=== PATIENT | female | born 1995 | race Caucasian/White ===

== ENCOUNTER 2016-11-28 09:44 | Outpatient (CLI) | payer MEDICAID ==
[~2016-11-28] VITALS: Ht 154.9 cm; Wt 84.6 kg
[~2016-11-28 09:44] MED LIST: ONDA4SOL2 PO; PREN1TAB62 PO
[2016-11-28 10:07] VITALS: BP 111/65; PULSE 81; RESP 18; Ht 154.9 cm; Wt 84.6 kg
[2016-11-28 10:49] LABS: ADD UMIC YES; URINE BILIRUBIN (Dip) NEGATIVE (NEGATIVE); URINE BLOOD (Dip) NEGATIVE (NEGATIVE); URINE COLOR LT. YELLOW (YELLOW); URINE GLUCOSE (Dip) NEGATIVE (NEGATIVE); URINE KETONES (Dip) NEGATIVE (NEGATIVE); URINE LEUKOCYTE ESTERASE (Dip) 1+ (NEGATIVE); URINE NITRITE (Dip) NEGATIVE (NEGATIVE); URINE TOTAL PROTEIN (Dip) NEGATIVE (NEGATIVE); URINE UROBILINOGEN (Dip) 0.2 E.U./dL (0.1-1.0)
[2016-11-28 11:02] LABS: BACTERIA,URINE OCCASIONAL; SQUAMOUS EPITHELIAL CELL,UR MODERATE; URINE RBCS NONE SEEN /HPF (0)
--- NOTE | 2016-11-28 11:04 | RADRPT ---
PROCEDURE: US OB limited. CLINICAL INDICATION: labor. TECHNIQUE: Multiple transabdominal sonographic images of the pelvis were obtained. COMPARISON: 08/20/2016. FINDINGS: There is a single live intrauterine in cephalic presentation with heart motion of 14 4 beats per minute. The placenta is located within the fundus and is without evidence of previa or abruption. The cervix is closed and measures approximately 3.0 cm in length. IMPRESSION: Closed cervix measuring 3.0 cm in length. RPTAT: HLST .Vivien Baptiste MD, MD Date Time Electronically viewed and signed by .Vivien Baptiste MD, on 11/28/2016 11:04 .T/
[2016-11-28] MEDS ORDERED: LIDOCAINE 1% (MPF) 30 ML INJ ONE (11:30)
--- NOTE | 2016-11-28 11:54 | TRIAGE ---
OB Triage Datetime Report Generated by CPN: 11/28/2016 11:54 Datetime: 11/28/2016 11:49 Vaginal Exam Dilatation (cms): 0.0 Exam By: FOROOHAR Datetime: 11/28/2016 11:00 Stage of : OB Triage Maternal Assessment Level of Consciousness: Fully Conscious Labor Evaluation Frequency: 5UC/HR Monitor Mode: External Duration (sec)2399: 30-130 Quality: Mild Resting Tone [place]: Relaxed Heart Rate FHR Baseline Rate: 135 Monitor Mode: External US Variability: Moderate 6-25 bpm Accelerations: 15X15 Decelerations: None Pain Assessment Pain Scale: 5 Pain Presence: Constant Pain Type: Sharp Pain Location: Perineum Pain Goal: 3 Pain Relief Measures: Comfort Measures Membrane Status: Intact Vaginal Bleeding: None Datetime: 11/28/2016 10:30 Stage of : OB Triage Maternal Assessment Level of Consciousness: Fully Conscious Labor Evaluation Frequency: OCCASIONAL Monitor Mode: External Duration (sec)2399: 30-40 Quality: Mild Resting Tone [place]: Relaxed Heart Rate FHR Baseline Rate: 135 Monitor Mode: External US Variability: Moderate 6-25 bpm Accelerations: 15X15 Decelerations: None Pain Assessment Pain Scale: 5 Pain Presence: Constant Pain Type: Sharp Pain Location: Perineum Pain Goal: 3 Pain Relief Measures: Comfort Measures Membrane Status: Intact Vaginal Bleeding: None Datetime: 11/28/2016 10:05 EGA: 33.1 Datetime: 11/28/2016 10:02 Assessment Type: Triage Maternal Assessment Level of Consciousness: Fully Conscious DTR's/Clonus: DTRs 2+; No Clonus Headache: Denies Blurred Vision: No Respiratory Effort: Unlabored; Regular Rhythm; Equal Expansion Breath Sounds, Left: Clear and Equal Breath Sounds, Right: Clear and Equal Nausea/Vomiting: Denies RUQ Epigastric Pain: Denies Lower Extremities Edema: None Degree: None Upper Extremities Edema: None Degree: None Facial Edema: None Fall Risk Assessment History of Falling: (0) No Secondary Diagnosis: (0) No Ambulatory Aid: (0) Bedrest/Nurse Assist IV Therapy: (0) No Gait: (0) Normal/Bedrest/Immobile Mental Status: (0) Oriented to Own Ability Fall Score: 0 Fall Risk Score Definition: No Risk: No action required Datetime: 11/28/2016 10:00 Time of Arrival: 11/28/2016 09:43 Arrived By: Wheelchair Arrived From: Home Chief Complaint: PT HERE C/O SHARP PAINS TO VAGINA Movement: Decreased Contractions: Denies/Absent Rupture of Membranes: Denies Vaginal Bleeding: None Vaginal Discharge: Present Recent Sexual Intercouse: Denies Abdominal Trauma: Not Applicable Patient Complaints: Pain on Urination Time Provider Notified: 11/28/2016 10:15 Provider Notified: ANA CRISTINA Initial Plan: EFM, UA, U/S CVL
[2016-11-28] MEDS ORDERED: NITR-58 PO (11:56)
[2016-11-28] MEDS ORDERED: LIDOCAINE 1% (MPF) 30 ML INJ INJ PRN (12:00)
[2016-11-28] MEDS ORDERED: CEFTRIAXONE 2 GM INJ IM ONE (12:00)
--- NOTE | 2016-11-28 15:40 | CONS ---
DATE OF ADMISSION: 11/28/2016 DATE OF CONSULTATION: 11/28/2016 HISTORY OF PRESENT ILLNESS: This is a triage consult for this 20-year-old 3, para 2 with ED C of 01/15/2017 which makes her about 33 weeks and 2 days. She came to the triage area complaining of a sharp, shooting pain in her lower abdomen and vaginal area as well as burning sensation on urin ation for today and last night. PHYSICAL EXAMINATION: ENT: Normal. NECK: Normal. No neck vein distention, no thyromegaly. LUNGS: Clear to auscultation and percussion. HEART: Normal sinus rhythm. BREASTS: Free of masses. ABDOMEN: Measuring about 38 cm. Baby appears to be in vertex presentation. heart tone was n ormal. EXTREMITIES: Normal. PELVIC: The cervix was normal about 2.5 to 3.5 cm in length, closed and she did not have any bleedi ng at that time. The effacement of the cervix was around 20% to 30%. The ultrasound study which wa s done revealed a single live intrauterine in cephalic presentation. heart of motio n of 144 beats per minute. The placenta was located within the fundus area without any evidence of placenta previa or abruptio placenta. The cervical length they reported was 3 cm. LABORATORY DATA: Her lab work which was done here: Urinalysis did show a 1+ positive for leukocyte esterase and the rest of the exam was normal. She was given 2 grams of Rocephin and then a prescri ption was written for Macrobid 100 mg to be taken b.i.d. for 10 days and will have a followup examin ation in the clinic in 3 days Dictated By: HEIDI WORRELL MD HF/NTS Conf#: [id number] DID#: [id number]
== END 2016-11-28 12:00 | disposition home or self-care (01) ==
LOC: OBT 09:44 → L-D 09:45 → OBT 12:00
PROVIDERS: ATTEND Obstetrics & Gynecology
DX: O26.893 Other specified pregnancy related conditions, third trimester (principal); R10.30 Lower abdominal pain, unspecified; R30.0 Dysuria; O60.03 Preterm labor without delivery, third trimester; Z3A.33 33 weeks gestation of pregnancy
CPT/HCPCS: 76817; 81001; 96372; J0696; Z7500; Z7610; 81003; G0463

== ENCOUNTER 2017-01-08 05:38 | Inpatient (IN) | payer MEDICAID ==
[2017-01-08] VITALS (7 sets, daily range): BP systolic 107–123; BP diastolic 57–84; PULSE 67–87; RESP 17–19; Ht 154.9 cm; Wt 86.0 kg
[~2017-01-08] VITALS: Ht 154.9 cm; Wt 86.0 kg
[2017-01-08] MEDS: LACTATED RINGER'S 1,000 ML IV SCH ×3 (00:02→07:19)
[~2017-01-08 05:38] MED LIST changes: +NITR-58 PO; -ONDA4SOL2 PO
[2017-01-08] MEDS ORDERED: OXYTOCIN 30 UNITS/LR 500 ML IV SCH (06:00)
[2017-01-08] MEDS ORDERED: CARBOPROST 250 MCG INJ IM PRN ×2 (06:00→12:30)
[2017-01-08] MEDS ORDERED: MISOPROSTOL 200 MCG TAB PR PRN ×2 (06:00→12:30)
[2017-01-08] MEDS ORDERED: CEFAZOLIN 2 GM/50 ML (PMX) 50 ML IV SCH (06:00)
[2017-01-08] MEDS ORDERED: METHYLERGONOVINE 0.2 MG INJ IM PRN ×2 (06:00→12:30)
[2017-01-08] MEDS ORDERED: OXYTOCIN 30 UNITS/LR 500 ML IV PRN ×2 (06:00→12:30)
[2017-01-08 06:42] LABS: INR 0.91; PARTIAL THROMBOPLASTIN TIME 28.2 Sec (25.0-35.0); PROTIME 12.2 Sec (12.2-14.2)
[2017-01-08 06:51] LABS: BASOPHILS % 0.4 % (0.0-2.0); EOSINOPHILS # 0.1 10^3/ul (0.0-0.5); EOSINOPHILS % 0.7 % (0.0-7.0); HEMOGLOBIN 13.3 g/dl (12.0-16.0); LYMPHOCYTES # 2.6 10^3/ul (0.8-2.9); MEAN CORPUSCULAR HEMOGLOBIN 28.3 pg (29.0-33.0); MEAN CORPUSCULAR HGB CONC 34.1 g/dl (32.0-37.0); MEAN CORPUSCULAR VOLUME 82.9 fl (82.0-101.0); MEAN PLATELET VOLUME 9.7 fl (7.4-10.4); MONOCYTE # 0.3 10^3/ul (0.3-0.9); MONOCYTES % 3.3 % (0.0-11.0); NEUTROPHIL # 7.5 10^3/ul (1.6-7.5); NEUTROPHILS % 70.6 % (39.0-77.0); PLATELET COUNT 215 10^3/UL (140-440); RED BLOOD COUNT 4.71 10^6/ul (4.20-5.40); RED CELL DISTRIBUTION WIDTH 15.1 % (11.5-14.5); UNCORRECTED WBC 10.6 10^3/ul (4.8-10.8); WHITE BLOOD COUNT 10.6 10^3/ul (4.8-10.8)
[2017-01-08 06:55] LABS: CONDITION 1; LH ANALYZER COMMENTS 1
[2017-01-08] MEDS ORDERED: ONDANSETRON 4 MG INJ IV STA (07:05)
[2017-01-08] MEDS ORDERED: morphine SULFATE/PF (10 MG/10 ML) INJ ONE (07:07)
[2017-01-08] MEDS ORDERED: OXYTOCIN 10 UNIT INJ ONE (07:07)
[2017-01-08] MEDS ORDERED: CITRIC ACID/NA CITRATE 30 ML CUP PO ONE (07:30)
[2017-01-08] MEDS ORDERED: PHENYLephrine (100 MCG/ML) 5ML SYG ONE (08:46)
[2017-01-08] MEDS ORDERED: KETOROLAC 30 MG INJ ONE (09:01)
[2017-01-08] MEDS ORDERED: METOCLOPRAMIDE 10 MG INJ ONE (09:01)
[2017-01-08] MEDS ORDERED: DEXAMETHASONE 4 MG/ML 1 ML INJ ONE (09:01)
[2017-01-08] MEDS ORDERED: EPHEDrine SULFATE 50 MG/5 ML SYG IV PRN (09:30)
[2017-01-08] MEDS ORDERED: HYDROmorphONE (0.2 MG/ML) 10ML SYG IV PRN ×3 (09:30)
[2017-01-08] MEDS ORDERED: HYDROmorphONE 1 MG/ML SYG IV PRN ×2 (09:30)
[2017-01-08] MEDS ORDERED: NALOXONE (0.4 MG/ML) INJ IV PRN (09:30)
[2017-01-08] MEDS ORDERED: morphine 2 MG INJ IV PRN ×2 (09:30)
[2017-01-08] MEDS ORDERED: ZOLPIDEM 5 MG TAB PO PRN (09:30)
[2017-01-08] MEDS ORDERED: FENTAnyl 50 MCG/ML VIAL IV PRN ×2 (09:30)
[2017-01-08] MEDS ORDERED: METOCLOPRAMIDE 10 MG INJ IV PRN (09:30)
[2017-01-08] MEDS ORDERED: ONDANSETRON 4 MG INJ IV PRN ×2 (09:30)
[2017-01-08] MEDS ORDERED: DIPHENHYDRAMINE 50 MG INJ IV PRN ×2 (09:30)
[2017-01-08] MEDS ORDERED: MEPERIDINE 25 MG INJ IV PRN (09:30)
[2017-01-08] MEDS ORDERED: morphine (1 MG/ML) 10ML SYRINGE IV PRN ×3 (09:30)
[2017-01-08] MEDS ORDERED: DIPHENHYDRAMINE 50 MG INJ ONE (10:03)
--- NOTE | 2017-01-08 11:23 | HP ---
DATE OF ADMISSION: 01/08/2017 HISTORY OF PRESENT ILLNESS: This is a 20-year-old female, 3, para 2, EDC of 2006. History of previous section admitted at 39 weeks' gestation for repeat transverse low cervical section. This patient has been under the care of the [facility] an kyara her course was not complicated with gestational diabetes, questionable hypertension towa rds the latter part of the , but unknown medications. GYNECOLOGIC HISTORY: Menarche at age 9, regular period every 28 days, lasting 4 or 5 days. Histor y of 3 pregnancies including the present, 2 previous C-sections. PAST MEDICAL HISTORY: No other history of surgery or hospitalization recorded in the patient's pren atal. ALLERGIES: DENIES ALLERGY TO ANY KNOWN MEDICATION. SOCIAL HISTORY: Denies smoking or drinking. FAMILY HISTORY: Unremarkable. REVIEW OF SYSTEMS: Within normal. PHYSICAL EXAMINATION: VITAL SIGNS: 5 feet 1 inch, 190 pounds with a temperature of 98.7, pulse of 87, respiration 18, blo od pressure 118/66. HEAD, EARS, NOSE AND THROAT: Negative. NECK: Supple. No thyromegaly. LUNGS: Clear to P and A. HEART: Normal sinus rhythm, no murmur. BREASTS: Status compatible with state of the . No abnormal palpable mass. No nipple retr action or discharge. No axillary adenopathy, no supraclavicular adenopathy. ABDOMEN: Measures 37 cm from symphysis pubis with the heart rate at 135 beats per minute, cat egory 1. PELVIC: Deferred. EXTREMITIES: No edema, no varicosities. IMPRESSION: 1. Intrauterine at 39 weeks' gestation. 2. History of 2 previous C-sections, undergoing a repeat for the third time. Patient is aware of the complication of the surgery, including bowel or bladder injury, infection, hemorrhage, and hematoma, and she is willing to go ahead with this procedure. Dictated By: CIARA DE LA PAZ MD HF/NTS Conf#: [id number] DID#: [id number]
[2017-01-08] MEDS: KETOROLAC 30 MG INJ IV PRN ×2 (11:48→20:24)
[2017-01-08] MEDS ORDERED: ACETAMINOPHEN/CODEINE #3 TAB PO PRN ×2 (12:30)
[2017-01-08] MEDS ORDERED: LANOLIN 7 GM TUBE TOP PRN (12:30)
[2017-01-08] MEDS ORDERED: CEFAZOLIN 1 GM/50 ML (PMX) 50 ML IVPB SCH (12:30)
[2017-01-08] MEDS: OXYTOCIN 30 UNITS/LR 500 ML IV SCH ×3 (15:39→20:11)
--- NOTE | 2017-01-08 17:55 | OPR ---
DATE OF OPERATION: PREOPERATIVE DIAGNOSES: 1. Intrauterine at 39 weeks' gestation. 2. History of 2 previous sections. POSTOPERATIVE DIAGNOSES: 1. Intrauterine at 39 weeks' gestation. 2. History of 2 previous sections. OPERATION PERFORMED: Repeat transverse low cervical section. SURGEON: Ciara Jang MD MEDICAL DIR: Leandro Odell MD ANESTHESIA: Spinal. ANESTHESIOLOGIST: FINDINGS: Live baby boy with the 9 and 9. Baby weighed 8 pounds. DETAILS OF THE PROCEDURE: Under satisfactory spinal anesthesia, the patient was prepped and draped and placed in supine position, tilted to the left. Pfannenstiel incision was made, incision carried through the subcutaneous tissue. Bleeders brought under control with electrocautery. Fascia incised to the length of incision. Rectus muscle divided in midline. Peritoneum exposed. Upon entry into the abdomen, there was some adhesion between the omentum, anterior uterine wall and the lower segment, which was taken down by the sharp and blunt dissection. Lower segment of the uterus, which was extremely thinned out, exposed and a transverse incision was made in the upper part of the lower segment of the uterus above the thin part. Incision continued to the membrane, which was punctured and clear amniotic fluid noted. Live baby boy was delivered from unengaged vertex. Nasal oropharyngeal suction was performed and baby handed to the team for immediate attention. The patient received 20 units of Pitocin. Placenta delivered manually intact. Uterine cavity cleaned with wet sponge and drainage established. Uterus closed in 2 layers using Monocryl #1 in continuous fashion. Peritoneal cavity irrigated with warm saline. Sponge, needle and instrument reported to be correct. Abdominal peritoneum closed with 2-0 chromic catgut continuously. Rectus muscle approximated with few interrupted 2-0 chromic catgut. Fascia closed with #1 PDS in a continuous fashion. Subcutaneous tissue approximated with 2-0 chromic catgut. Skin closed with elliot. Estimated blood loss 600-700 mL. Urine bag contained 200 mL of clear urine. Patient tolerated the procedure well , transferred to recovery room in a good condition. Dictated By: CIARA LALA/SESAR Conf#: [id number] DID#: [id number] [facility]ALTH[facility]aron
[2017-01-08] MEDS: SENNA/DOCUSATE NA (8.6MG/50MG) TAB PO SCH (21:00)
[2017-01-09] MEDS: LACTATED RINGER'S 1,000 ML IV SCH (00:02)
[2017-01-09] MEDS: KETOROLAC 30 MG INJ IV PRN (04:34)
[2017-01-09 04:45] VITALS: BP_SYST 126; BP_SYST 96; BP_DIAS 56; BP_DIAS 78; PULSE 67; PULSE 92; RESP 18
[2017-01-09] MEDS: IBUPROFEN 600 MG TAB PO SCH ×5 (07:30→23:37)
[2017-01-09] MEDS: SENNA/DOCUSATE NA (8.6MG/50MG) TAB PO SCH ×2 (08:02→21:04)
[2017-01-09 08:30] VITALS: BP 101/49; PULSE 81; RESP 16
[2017-01-09] MEDS: OXYCODONE/ACETAMINOPHEN (5/325) TAB PO PRN ×3 (09:17→19:35)
[2017-01-09 09:56] LABS: BASOPHILS % 0.3 % (0.0-2.0); EOSINOPHILS % 0.5 % (0.0-7.0); HEMATOCRIT 32.5 % (37.0-47.0); LYMPHOCYTES # 2.4 10^3/ul (0.8-2.9); LYMPHOCYTES % 26.6 % (15.0-51.0); MEAN CORPUSCULAR HEMOGLOBIN 28.5 pg (29.0-33.0); MEAN CORPUSCULAR VOLUME 83.9 fl (82.0-101.0); MEAN PLATELET VOLUME 9.4 fl (7.4-10.4); MONOCYTE # 0.3 10^3/ul (0.3-0.9); MONOCYTES % 2.9 % (0.0-11.0); NEUTROPHIL # 6.3 10^3/ul (1.6-7.5); NEUTROPHILS % 69.7 % (39.0-77.0); PLATELET COUNT 167 10^3/UL (140-440); RED BLOOD COUNT 3.87 10^6/ul (4.20-5.40); RED CELL DISTRIBUTION WIDTH 15.2 % (11.5-14.5); UNCORRECTED WBC 9.1 10^3/ul (4.8-10.8); WHITE BLOOD COUNT 9.1 10^3/ul (4.8-10.8)
[2017-01-09 10:13] LABS: CONDITION 1; LH ANALYZER COMMENTS 1
--- NOTE | 2017-01-09 13:22 | PN ---
Date/Time of Note Date/Time of Note DATE: 01/09/17 TIME: 13:21 OB Subjective Subjective Subjective Post day 1 Afebrile, vital signs stable, abdomen soft incision, uterus for, lochia normal patient is ambulate, bowel sounds present, extremities normal CIARA DE LA PAZ MD Jan 09, 2017 13:22
[2017-01-09 16:52] VITALS: BP 124/62; PULSE 93; RESP 18
[2017-01-09 19:30] VITALS: BP 117/62; PULSE 82; RESP 20
[2017-01-10 04:00] VITALS: BP 106/60; PULSE 82; RESP 19
[2017-01-10] MEDS: OXYCODONE/ACETAMINOPHEN (5/325) TAB PO PRN ×3 (05:03→18:40)
[2017-01-10] MEDS: IBUPROFEN 600 MG TAB PO SCH ×4 (06:22→23:47)
[2017-01-10 08:00] VITALS: BP 116/55; PULSE 78; RESP 18
[2017-01-10] MEDS: SENNA/DOCUSATE NA (8.6MG/50MG) TAB PO SCH ×2 (08:55→21:23)
--- NOTE | 2017-01-10 12:28 | PN ---
Date/Time of Note Date/Time of Note DATE: 01/10/17 TIME: 12:26 OB Subjective Subjective Subjective Post day 2 Afebrile, vital signs stable, abdomen soft, incision dry, bowel sounds present no bowel movement extremities normal enema recommended CIARA DE LA PAZ MD Jan 10, 2017 12:28
[2017-01-10] MEDS ORDERED: NA PHOSPHATE/BIPHOS 133 ML ENEMA PR ONE (12:30)
[2017-01-10 15:58] VITALS: BP 117/66; PULSE 91; RESP 18
[2017-01-10 20:00] VITALS: BP 114/62; PULSE 95; RESP 20
[2017-01-11] MEDS: OXYCODONE/ACETAMINOPHEN (5/325) TAB PO PRN ×2 (00:50→11:02)
[2017-01-11 04:00] VITALS: BP 113/62; PULSE 78; RESP 18
[2017-01-11] MEDS: IBUPROFEN 600 MG TAB PO SCH ×2 (05:34→11:57)
[2017-01-11 08:30] VITALS: BP 129/71; PULSE 87; RESP 20
[2017-01-11] MEDS: SENNA/DOCUSATE NA (8.6MG/50MG) TAB PO SCH (08:35)
[2017-01-11] MEDS ORDERED: DIPHTH/TET/ACEL PERTUSS (ADULT) 0.5 ML VIAL IM* ONE (09:00)
--- NOTE | 2017-01-11 09:09 | PD.PPDC ---
RECEIVER Discharge Instruction Condition Patient Condition: Good Diet Diet: Resume Regular Diet Activity/Restrictions Activity: Normal Activity May Shower Wound/Drain Care Instructions Wound/Drain Care Instructions: Remove Steri Strips in 1 week Follow-up Follow-up with Physician: 4, Day/Days Provider Information: Appointment clinic in 4 days to DC her elliot Return to clinic for PLATE FITTER Instructions: Fever greater than 101 Worsening abdominal pain Excessive Vaginal Bleeding More than 2 pads per hour Unable to tolerate diet OB Instructions: Breast Tenderness Blurried Vision Headache Surgical Instructions: Incisional Drainage Incisional Redness CIARA DE LA PAZ MD Jan 11, 2017 09:09
--- NOTE | 2017-01-11 09:12 | DS ---
Date/Time of Note Date/Time of Note DATE: 01/11/17 TIME: 09:10 Obstetrical Discharge Record Final Diagnosis Final Diagnosis: Term delivered Section Section: Repeat Condition on Discharge Physical Assessment Last Vitals: Post repeat day 3 Afebrile vital sign stable abdomen soft incision dry lochia moderate had normal bowel movement discharged home with follow-up instruction to be seen at the clinic in 4 days to remove her elliot Voiding: Yes Bowel Movement: Yes Fundus: Firm Abdomen and Incision: Healing well dry free of inflammation Calf Tenderness: No Patient Condition: Good CIARA DE LA PAZ MD Jan 11, 2017 09:12
== END 2017-01-11 18:08 | disposition home or self-care (01) | DRG 766 ==
LOC: L-D 05:38 → PP1 12:28
PROVIDERS: ADMIT Obstetrics & Gynecology; ATTEND Obstetrics & Gynecology
PROC: 10D00Z1 Extraction of Products of Conception, Low, Open Approach (ICD-10-PCS; principal; 2017-01-08 07:30)
DX: O34.211 Maternal care for low transverse scar from previous cesarean delivery (principal); Z37.0 Single live birth; Z3A.39 39 weeks gestation of pregnancy
CPT/HCPCS: 85025; 85610; 85730; 86592; 86850; 86900; 86901; 87340; 90715; 94760; 99464; J0690; J1100; J1200; J1885; J2274; J2370; J2405; J2590; J2765; J7120